=== PATIENT | male | born 1975 | race Caucasian/White ===

== ENCOUNTER 2016-12-19 17:11 | Emergency (ER) | payer OTHER ==
[~2016-12-19] VITALS: Ht 188 cm; Wt 97.5 kg
[2016-12-19 17:17] VITALS: BP 162/99
[2016-12-19] MEDS ORDERED: FLEXERIL10 MG PO (17:21)
== END 2016-12-19 17:28 | disposition home or self-care (01) ==
LOC: EME 17:11
DX: S16.1XXA Strain of muscle, fascia and tendon at neck level, initial encounter (principal); V43.52XA Car driver injured in collision with other type car in traffic accident, initial encounter
CPT/HCPCS: 99281; 99283

== ENCOUNTER 2017-04-09 15:54 | Emergency (ER) | payer OTHER ==
[~2017-04-09] VITALS: Ht 188 cm; Wt 95.4 kg
[~2017-04-09 15:54] MED LIST: FLEXERIL10 MG PO
[2017-04-09 16:17] VITALS: BP 179/88
[2017-04-09 16:50] LABS: APPEARANCE CLEAR ((CLEAR)); BILIRUBIN NEGATIVE; BLOOD NEGATIVE; COLOR YELLOW ((YELLOW)); GLUCOSE (STRIP) NEGATIVE; KETONES NEGATIVE; LEUKOCYTES NEGATIVE; NITRITE NEGATIVE; PROTEIN (STRIP) NEGATIVE; SPECIFIC GRAVITY 1.024 (1.000-1.030); UCUL ADDED? NO; UROBILINOGEN 0.2 MG/DL (0.2-1.0)
[2017-04-09 17:18] LABS: HEMATOCRIT 45.9 % (38.0-50.0); HEMOGLOBIN 15.8 G/DL (12.5-16.6); MCH 31.4 PG (29.0-34.0); MCHC 34.4 G/DL (30.0-36.0); MCV 91.3 FL (86-99); RBC DIS.WIDTH-CV 13.3 % (11.8-14.6); RED BLOOD COUNT 5.03 M/uL (4.00-5.50); WHITE BLOOD COUNT 7.1 K/uL (4.1-10.2)
[2017-04-09] MEDS ORDERED: OMEPRAZOLE40 M1 PO (17:25)
[2017-04-09] MEDS ORDERED: AMOXICILLIN500 M1 PO (17:25)
[2017-04-09] MEDS ORDERED: ZOFRAN4 MG PO (17:25)
[2017-04-09 17:27] LABS: ALBUMIN 4.2 g/dL (3.2-4.8); CHLORIDE 109 mEq/L (99-109); POTASSIUM 4.4 mEq/L (3.7-5.4); SODIUM 141 mEq/L (136-147)
[2017-04-09 17:30] LABS: GLUCOSE 70 mg/dL (70-99); TOTAL PROTEIN 7.3 g/dL (6.4-8.3)
[2017-04-09 17:31] LABS: TOTAL BILIRUBIN 0.3 mg/dL (0.0-1.0)
[2017-04-09 17:33] LABS: ALKALINE PHOSPHATASE 60 IU/L (3-129); CREATININE 1.1 mg/dL (0.6-1.3); GFR ESTIMATE (CALCULATED) > 59 mL/min/ (58.99-99999)
[2017-04-09 17:34] LABS: UREA NITROGEN (BUN) 11 mg/dL (9-23)
[2017-04-09 17:35] LABS: AST (GOT) 26 IU/L (2-34)
[2017-04-09 17:36] LABS: ALT (GPT) 54 IU/L (3-49)
[2017-04-09 17:37] LABS: LIPASE 19 U/L (1.0-51.0)
[2017-04-09 18:35] LABS: PLAT.SUFFICIENCY ADEQUATE; PLATELET COUNT 206 K/uL (156-360)
== END 2017-04-09 17:51 | disposition home or self-care (01) ==
LOC: EME 15:54
PROVIDERS: Physician Assistant
DX: R11.0 Nausea (principal); R10.13 Epigastric pain; R03.0 Elevated blood-pressure reading, without diagnosis of hypertension; Z20.818 Contact with and (suspected) exposure to other bacterial communicable diseases; Z96.642 Presence of left artificial hip joint
CPT/HCPCS: 80053; 81003; 83690; 85027; 99281; 99282

== ENCOUNTER → 2017-05-19 | Outpatient (CLI) | payer MEDICARE, OTHER ==
[~2017-05-19] MED LIST changes: +AMOXICILLIN500 M1 PO; +OMEPRAZOLE40 M1 PO; +ZOFRAN4 MG PO
== END | disposition home or self-care (01) ==
LOC: CDC 15:58
DX: M25.512 Pain in left shoulder (principal); R94.31 Abnormal electrocardiogram [ECG] [EKG]
CPT/HCPCS: 93000